=== PATIENT | male | born 1995 | race Caucasian/White ===

== ENCOUNTER 2017-07-02 18:18 | Emergency (ER) | payer OTHER ==
[~2017-07-02] VITALS: Ht 175.3 cm; Wt 107.0 kg
[~2017-07-02 18:18] MED LIST: CYMB30CA PO; CYMB60CA PO
[2017-07-02 18:20] VITALS: BP 120/68; PULSE 81; RESP 16; TEMP 99.4; O2SAT 96
[2017-07-02] MEDS ORDERED: LITH600C PO (18:45)
[2017-07-02] MEDS ORDERED: PRIS100T PO (18:45)
[2017-07-02] MEDS ORDERED: XANA1TAB2 PO (18:45)
[2017-07-02] MEDS ORDERED: AUGM875T3 PO (19:11)
--- NOTE | 2017-07-02 19:11 | PD ---
HPI Chief Complaint: ENT Complaint Time Seen by Provider: 19:01 Travel History International Travel<30 days: No Contact w/Intl Traveler<30days: No Traveled to known affect area: No History of Present Illness HPI This is a 22-year-old male here with bilateral ear pain 1 week. He reports he was treated with a Z-Benny for upper respiratory infection and had no relief of the ear pain. Denies fever chills. Reports constant, throbbing pain in both ears. Symptom severity is moderate. No aggravating or alleviating factors. PFSH Past Medical History Asthma: Yes Anxiety: Yes Depression: Yes Diminished Hearing: No Immunizations Current: Yes Tetanus Vaccination: > 5 Years Influenza Vaccination: No Social History Alcohol Use: No Tobacco Use: No Substance Use: No Allergies-Medications (Allergen,Severity, Reaction): Coded Allergies: No Known Allergies (Verified Adverse Reaction, Unknown, 07/02/17) Uncoded Allergies: CINAMMON (Allergy, Unknown, 11/21/02) Reported Meds & Prescriptions Reported Meds & Active Scripts Active Reported Xanax (Alprazolam) 1 Mg Tab 1 Mg PO Q6H PRN [place] Carbonate 600 Mg Cap 900 Mg PO DAILY Pristiq 24 HR (Desvenlafaxine ER 24 HR) 100 Mg Tab 100 Mg PO DAILY Review of Systems Except as stated in HPI: all other systems reviewed are Neg General / Constitutional: No: Fever Eyes: No: Visual changes HENT: No: Headaches Cardiovascular: No: Chest Pain or Discomfort Respiratory: No: Shortness of Breath Gastrointestinal: No: Abdominal Pain Genitourinary: No: Dysuria Physical Exam Narrative GENERAL: Alert and oriented 22-year-old male SKIN: Warm and dry. HEAD: Normocephalic. EYES: No injection or drainage. ENT: Bilateral TM erythema, bulging, loss of landmarks. No canal swelling or drainage. No mastoid tenderness. NECK: Supple, trachea midline. No lymphadenopathy. No meningismus CARDIOVASCULAR: Regular rate and rhythm RESPIRATORY: Breath sounds equal bilaterally. No accessory muscle use. GASTROINTESTINAL: Abdomen soft, non-tender, nondistended. MUSCULOSKELETAL: No cyanosis, or edema. Data Data Last Documented VS Vital Signs Date Time Temp Pulse Resp B/P (MAP) Pulse Ox O2 Delivery O2 Flow Rate FiO2 07/02/17 18:20 99.4 81 16 120/68 (85) 96 MDM Medical Decision Making Medical Screen Exam Complete: Yes Emergency Medical Condition: Yes Differential Diagnosis Otitis media, otitis externa, URI Narrative Course 22-year-old male here with otitis media. He is nontoxic appearing. He will be treated with Augmentin. Diagnosis Primary Impression: Otitis media Qualified Codes: H66.90 - Otitis media, unspecified, unspecified ear Referrals: Primary Care Physician Additional Instructions: Antibiotics as directed. Ibuprofen 800 mg every 6 hours as needed for pain. Scripts Amoxicillin-Clavulanate (Augmentin) 875-125 Mg Tab 1 TAB PO BID for Infection, #20 TAB 0 Refills Prov: Allyssa Graves 07/02/17 Disposition: 01 DISCHARGE HOME Condition: Stable Allyssa Graves Jul 02, 2017 19:11
== END 2017-07-02 19:39 | disposition home or self-care (01) ==
LOC: PHEFT 18:18
DX: H66.93 Otitis media, unspecified, bilateral (principal); J45.909 Unspecified asthma, uncomplicated; F41.9 Anxiety disorder, unspecified; F32.9 Major depressive disorder, single episode, unspecified; Z79.899 Other long term (current) drug therapy
CPT/HCPCS: 99283